=== PATIENT | male | born 1970 | race Caucasian/White ===

== ENCOUNTER 2018-05-04 21:57 | Emergency (ER) | payer SELFPAY, MEDICAID ==
[2018-05-05] MEDS: METHYLPREDNISOLONE 125 MG INJ IM (03:54)
[2018-05-05] MEDS: CEFTRIAXONE 1 GM INJ IM (03:54)
[2018-05-05] MEDS: ONDANSETRON (ODT) 4 MG TAB ODT (03:54)
== END 2018-05-05 04:57 | disposition home or self-care (01) ==
LOC: FTE 21:57
DX: J03.90 Acute tonsillitis, unspecified (principal); K12.2 Cellulitis and abscess of mouth
CPT/HCPCS: 96372; 99284-25